=== PATIENT | male | born 1980 | race Caucasian/White ===

== ENCOUNTER 2023-06-11 17:17 | Emergency (ER) | payer OTHER, SELFPAY ==
[2023-06-11 17:17] VITALS: BP 133/95; PULSE 64; RESP 14; TEMP 36.5; O2SAT 97; BMI 27.5
[2023-06-11 18:05] LABS: Absolute Lymphocyte Count 3.07 X10^3/uL (0.83-4.51); Absolute Neutrophil Count 4.2 X10^3/uL (2.0-7.7); Basophil# 0.03 X10^3/uL; Basophil% 0.4 % (0-1); Eosinophil# 0.13 X10^3/uL; Eosinophils% 1.6 % (0-5); Hematocrit 42.8 % (40-54); Hemoglobin 14.5 g/dL (13.0-16.5); Lymphocyte # 3.07 X10^3/ul (0.83-4.51); Lymphocyte % 37.6 % (19-41); Mean Corp Hgb Conc 33.9 g/dL (32-36); Mean Corpuscular Hgb 32.4 pg (27.0-32.0); Mean Corpuscular Volume 95.7 fL (80-94); Mean Platelet Vol. 10.2 fl (6.2-12.0); Monocyte# 0.74 X10^3/uL; Monocyte% 9.1 % (0-10); NRBC Flagged by Analyzer 0 % (0-5); Neutrophil # 4.18 X10^3/uL (2.7-7.7); Neutrophil % 51.1 % (47-70); Platelet Count 187 K/mm3 (150-450); RBC Distribution Width CV 12.7 % (11.6-14.6); Red Blood Count 4.47 M/mm3 (4.6-6.2); White Blood Count 8.2 K/mm3 (4.4-11.0)
[2023-06-11 18:20] LABS: AST(SGOT) 23 U/L (15-37); Alanine Aminotransfer ALT/SGPT 28 U/L (16-61); Albumin, Serum 3.8 g/dL (3.2-5.0); Alkaline Phosphatase 49 U/L (45-117); Anion Gap 2 (5-15); BUN 15 mg/dL (7-18); BUN/Creat Ratio 12.1 RATIO (10-20); Calcium,Total 8.9 mg/dL (8.5-10.1); Chloride 108 mmol/L (98-107); Creatinine, Serum 1.24 mg/dL (0.70-1.30); EST Glomerular Filtration Rate 68 mL/min (>60); Erythrocyte Sedimentation Rate 7 mm/hr (0-20); Est Glom Filt Rate - Afr Amer 82 mL/min (>60); Estimated Creatinine Clearance 80.95 ml/min; Globulin 3.7 g/dL (2.2-4.2); Glucose 85 mg/dL (74-106); Potassium 4.1 mmol/L (3.5-5.1); Protein, Total 7.5 g/dL (6.4-8.2); Sodium Level 139 mmol/L (136-145)
--- NOTE | 2023-06-11 19:50 | EDS_ITS ---
HPI History of Present Illness Chief Complaint: Bite Detail of Chief Complaint: Tick bite and concern for Lyme's disease Informant: patient Onset/Context/Timing Onset: Weeks (Found engorged tick 2 weeks ago) Context: Sudden Onset Timing: Continuous Quality: Myalgias, arthralgias, headache, rash Location: Rashes mainly torso and generalized Current Severity: Mild Maximum Severity: Moderate Worsened by: Nothing Relieved by: Nothing Associated Symptoms Associated Symptoms: Viral-like symptoms Narrative Narrative: Patient is a 42-year-old male who presents because of concern for Lyme disease. He was bit by a tick. The tick was engorged. He presents with a central erupting erythematous crusting rash which is an atypical rash for Lyme's diseas e. He also has myalgias arthralgias, complains of headache. Denies neck pain or neck stiffness. Denies photophobia. He denies paresthesia, anesthesia motors upper or lower extremity. Prior similar symptoms: No Recent Illness/Hospitalization: No PFSH PFSH Medical History no medical history no medical history Home Medications doxycycline monohydrate 100 mg capsule 100 mg PO BID #42 CAPSULES 06/11/23 [Rx Last Taken Unknown] Allergy/AdvReac Type Severity Reaction Status Date / Time No Known Allergies Allergy Verified 06/11/23 17:20 Surgical History no surgical history Social History (Updated 06/11/23 @ 19:[address] Bogdan Garcia MD) household members: spouse and children Smoking Status: Never smoker substance use type: does not use ROS ROS ED Constitutional Constitutional ED: Reports fever(s) and subjective; Denies chills, sweats or weight loss Eyes Eyes: Denies blurry vision, change in vision or diplopia ENT ENT ED: Denies ear pain, rhinorrhea or sore throat Cardiovascular Cardiovascular: Denies chest pain Respiratory/Chest Respiratory/Chest: Denies cough, dyspnea or dyspnea on exertion Gastrointestinal Gastrointestinal: Denies abdominal pain, diarrhea, nausea or vomiting Genitourinary Genitourinary ED: Denies dysuria or hematuria Musculoskeletal Musculoskeletal: Reports arthralgias and myalgias; Denies neck pain Integumentary Reports rash Neurologic Neurologic: Reports headache(s); Denies paresthesias or weakness Hematologic/Lymphatic Hematologic/Lymphatic: Reports systems reviewed and no addt'l complaints, except as documented EXAM Physical Exam Const Vital Signs: 06/11/23 17:17 06/11/23 17:47 Temperature 97.7 F L Temperature Source Oral Pulse Rate 64 Respiratory Rate 14 Respiratory Effort Normal Respiratory Pattern Normal Blood Pressure 133/95 H Blood Pressure Mean 107 Pulse Ox 97 Oxygen Delivery Method Room Air Positive well nourished and well developed General Appearance ED: well developed and NAD; Negative for pallor HEENT HEENT Narrative: Head is atraumatic normocephalic. Ears normal. Nares patent. Eyes PERRL and EOMs intact bilaterally General Eye ED: Negative for pale conjunctiva or scleral icterus Neck no lymphadenopathy and supple Resp normal respiratory effort and clear to auscultation bilaterally Cardio regular rate, regular rhythm, S1 normal heart sound, S2 normal heart sound and no murmurs Extremity normal to inspection General Extremety ED: Negative for edema or tenderness General Extremity: Negative for edema Neuro oriented x3, CN's II-XII intact bilaterally and no sensory deficits noted Neuro Narrative: Been observed normal. Sensorium / Orientation: alert Skin no wounds and skin turgor normal Skin Narrative: Erythematous central crusting rash torso General Skin Exam: jaundice; Negative for pallor MDM MDM MDM Narrative Medical decision making narrative: Patient has viral-like symptoms and rash after tick bite. Concern for Lyme's disease. Blood work was obtained. Blood work is unremarkable. Lyme titers drawn. In light of patient's history timing of tick bite and onset of symptoms and rash we will treat with doxycycline. Dr. Galvan was paged. He did not call back. Patient was referred to Dr. Eubanks. Will place on 3-week course of doxycycline. Lab Data Attestation: I reviewed the patient's lab results. Labs: Laboratory Results - last 24 hr 06/11/23 17:54 WBC 8.2 RBC 4.47 L Hgb 14.5 Hct 42.8 MCV 95.7 H MCH 32.4 H MCHC 33.9 RDW Std Deviation 45.0 H RDW Coeff of Ankit 12.7 Plt Count 187 MPV 10.2 Immature Gran % (Auto) 0.200 Neut % (Auto) 51.1 Lymph % (Auto) 37.6 [place] % (Auto) 9.1 Eos % (Auto) 1.6 Baso % (Auto) 0.4 Absolute Neuts (auto) 4.2 Absolute Lymphs (auto) 3.07 Nucleated RBC % 0 ESR 7 Sodium 139 Potassium 4.1 Chloride 108 H Carbon Dioxide 29.0 Anion Gap 2 L BUN 15 Creatinine 1.24 Estim Creat Clear Calc 80.95 Est GFR (MDRD) Af Amer 82 Est GFR (MDRD) Non-Af 68 BUN/Creatinine Ratio 12.1 Glucose 85 Calcium 8.9 Total Bilirubin 0.90 AST 23 ALT 28 Alkaline Phosphatase 49 Total Protein 7.5 Albumin 3.8 Globulin 3.7 Albumin/Globulin Ratio 1.0 Discharge Plan Triage Chief Complaint: Bite ED Provider: Bogdan Garcia Dx/Rx/DC Orders Clinical Impression: Acute Lyme disease Instructions: ED Lyme Disease Prescriptions: New doxycycline monohydrate 100 mg capsule 100 mg PO BID Qty: 42 0RF Primary Care Provider: CALEB [facility] Referrals: [facility] [Other] Bahman Eubanks MD [Med Staff - Active Staff] - 2 Days Disposition Disposition: Home, Self Care
[2023-06-11 20:11] VITALS: BP 121/84; PULSE 52; RESP 18; O2SAT 100
[2023-06-13 16:14] LABS: Lyme Scn Total Ab w/Rflx Negative (Negative)
== END 2023-06-11 20:12 | disposition home or self-care (01) ==
PROVIDERS: Emergency Provider Emergency Medicine; Visit Provider Emergency Medicine
DX: A69.20 Lyme disease, unspecified (principal)
CPT/HCPCS: 80053; 85025; 85652; 86618; 99284